=== PATIENT | female | born 1930 | race Caucasian/White ===

== ENCOUNTER 2017-12-01 07:16 | Emergency (ER) | payer MEDICARE, BC ==
[~2017-12-01] VITALS: Ht 165.1 cm; Wt 62.6 kg
[~2017-12-01 07:16] MED LIST: ACETAMINOPHEN325 M1 PO; ASPIRIN EC81 M1 PO; BAYER CHEWABLE81 MG PO; CARDIZEM CD120 MG PO; CIPROFLOXACIN500 M1 PO; CIPROFLOXACIN500 M3 PO; COZAAR 50 MG TA50 M2 PO; CRESTOR10 MG PO; CRESTOR5 MG PO; LEVAQUIN 500 M500 MG PO; LEVOTHROID50 MCG PO; PRINIVIL5 MG PO; RYTHMOL150 MG PO; SYNTHROID100 MCG PO; SYNTHROID75 MCG; XANAX 0.5 MG0.5 M1 PO
[2017-12-01 08:43] LABS: ABSOLUTE EOSINOPHILS 0.2 thou/uL (0.0-0.7); ABSOLUTE LYMPHOCYTES 1.5 thou/uL (0.8-5.3); ABSOLUTE MONOCYTES 0.7 thou/uL (0.0-1.2); ABSOLUTE NEUTROPHILS 8.5 thou/uL (1.6-8.1); BASOPHILS 0.3 %; EOSINOPHILS 1.5 %; HEMATOCRIT 39.5 % (37.0-47.0); HEMOGLOBIN 13.2 gm/dL (12.0-15.0); LYMPHOCYTES 13.7 %; MCH 32.1 pg (26.0-34.0); MCHC 33.3 g/dL (28.0-37.0); MCV 96.5 fL (80.0-100.0); MONOCYTES 6.8 %; MPV 9.2 fl. (7.2-11.1); NUCLEATED RBCS 0 /100WBC; PLATELET COUNT* 239 thou/uL (150-400); POLYS 77.7 %; RDW-CV 12.7 % (10.5-14.5)
[2017-12-01 08:51] LABS: CALCIUM 8.7 mg/dL (8.5-10.1); CREATININE 0.8 mg/dL (0.6-1.3); POTASSIUM 4.6 mmol/L (3.5-5.1)
[2017-12-01 09:17] VITALS: BP 170/71
== END 2017-12-01 09:18 | disposition home or self-care (01) ==
LOC: M.ERS 07:16
PROVIDERS: Personal Emergency Response Attendant
DX: R04.0 Epistaxis (principal)

== ENCOUNTER 2018-04-07 19:31 | Inpatient (IN) | payer MEDICARE, BC ==
[~2018-04-07] VITALS: Ht 165.1 cm; Wt 61.4 kg
[2018-04-07 19:32] VITALS: BP 199/110
[2018-04-07 19:56] LABS: HEMATOCRIT 48.6 % (37.0-47.0); HEMOGLOBIN 16.1 gm/dL (12.0-15.0); MCH 31.7 pg (26.0-34.0); MCHC 33.1 g/dL (28.0-37.0); MCV 95.6 fL (80.0-100.0); NUCLEATED RBCS 0 /100WBC; PLATELET COUNT* 259 thou/uL (150-400); RBC 5.08 mil/uL (4.20-5.00); RDW-CV 13.8 % (10.5-14.5); WBC 20.2 thou/uL (4.0-11.0)
[2018-04-07 20:08] LABS: BE -2.4 mmol/L (-2 to +3); HCO3 21.1 mmol/L (22.0-26.0); PCO2 33.1 mmHg (35.0-45.0); pH 7.422 (7.340-7.450)
[2018-04-07 20:11] LABS: PO2 59.4 mmHg (75.0-100.0)
[2018-04-07 20:18] LABS: ANION GAP 9 mmol/L (7-16); BUN 29 mg/dL (7-18); CALCIUM 9.6 mg/dL (8.5-10.1); CHLORIDE 103 mmol/L (98-107); CO2 27 mmol/L (21-32); CREATININE 0.9 mg/dL (0.6-1.3); GLUCOSE 106 mg/dL (70-99); POTASSIUM 4.4 mmol/L (3.5-5.1); SODIUM 139 mmol/L (136-145)
[2018-04-07 20:22] LABS: ABSOLUTE BASOPHILS 0.2 thou/uL (0.0-0.2); ABSOLUTE EOSINOPHILS 0.2 thou/uL (0.0-0.7); ABSOLUTE LYMPHOCYTES 2.6 thou/uL (0.8-5.3); ABSOLUTE MONOCYTES 0.8 thou/uL (0.0-1.2); ABSOLUTE NEUTROPHILS 16.4 thou/uL (1.6-8.1); PLATELET ESTIMATE ADEQUATE
[2018-04-07 20:25] LABS: ALBUMIN 4.3 g/dL (3.4-5.0); ALKALINE PHOSPHATASE 109 U/L (46-116); SGOT 26 U/L (15-37); SGPT 24 U/L (30-65); TOTAL BILIRUBIN 0.4 mg/dL (<0.1-1.0); TOTAL PROTEIN 8.5 g/dL (6.4-8.2); TROPONIN-I LEVEL <0.06 ng/mL (<0.06)
[2018-04-07 20:29] LABS: INR 1.1; PROTIME 10.7 Seconds (9.20-11.50)
[2018-04-07 21:30] VITALS: BP 157/69
[2018-04-07 22:00] VITALS: BP 178/92; BP 182/74
[2018-04-08 00:52] VITALS: BP 132/54
[2018-04-08 04:00] VITALS: BP 116/51
--- NOTE | 2018-04-08 04:48 | NUR ---
PATIENT PARTIALLY PROGRESSING TOWARDS GOALS SINCE ADMISSION: O2 SATS MAINTAINED >92% ON 3L O2 NC. PATIENT'S WORK OF BREATHING HAS SLIGHTLY IMPROVED, ALTHOUGH PATIENT DOES HAVE DYSPNEA ON EXERTION. PATIENT COMPLIANT WITH CALL LIGHT, FALL PRECAUTIONS IN PLACE. PATIENT RESTING COMFORTABLY AT THIS TIME. HOURLY ROUNDING OBSERVED. CALL LIGHT WITHIN REACH
[2018-04-08 05:01] LABS: HEMATOCRIT 41.4 % (37.0-47.0); MCH 31.3 pg (26.0-34.0); MCHC 32.5 g/dL (28.0-37.0); MCV 96.3 fL (80.0-100.0); MPV 10.5 fl. (7.2-11.1); RBC 4.29 mil/uL (4.20-5.00); RDW-CV 14.2 % (10.5-14.5); WBC 25.9 thou/uL (4.0-11.0)
[2018-04-08 05:15] LABS: HEMOGLOBIN 13.4 gm/dL (12.0-15.0)
[2018-04-08 05:24] LABS: CALCIUM 8.5 mg/dL (8.5-10.1); CREATININE 0.8 mg/dL (0.6-1.3); MAGNESIUM 1.7 mg/dL (1.8-2.4); POTASSIUM 3.9 mmol/L (3.5-5.1)
[2018-04-08 08:05] LABS: URINE BILIRUBIN NEGATIVE (Negative); URINE BLOOD TRACE (Negative); URINE CLARITY CLEAR; URINE COLOR YELLOW; URINE GLUCOSE-RANDOM NEGATIVE (Negative); URINE KETONES NEGATIVE (Negative); URINE LEUKOCYTES-REFLEX TRACE (Negative); URINE NITRITE-REFLEX NEGATIVE (Negative); URINE PROTEIN NEGATIVE (Negative); URINE SPECIFIC GRAVITY >= 1.030 (1.005-1.030); URINE UROBILINOGEN 0.2 E.U./dl (0.2-1.0)
[2018-04-08 08:28] LABS: BACTERIA-REFLEX 1-9 Few /HPF (None Seen); CASTS None Seen /LPF (None Seen); CRYSTALS None Seen /LPF (None Seen); MUCUS None Seen strn/LPF (None Seen); SQUAMOUS 0-3 Few /LPF (0-3); URINE RBC 3-10 Few /HPF (0-2); URINE WBC-REFLEX 0-5 Rare /HPF (0-5)
[2018-04-08 08:30] VITALS: BP 150/77
[2018-04-08 11:33] VITALS: BP 135/73
--- NOTE | 2018-04-08 11:34 | EKG ---
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1930 Requested By: Macarena Rosas Order Number: [id number] MD: Andrzej Ramos Measurements Intervals [place] Rate: 108 P: [place]: QRS: 84 QRSD: 77 T: 263 QT: 268 QTc: 359 Interpretive Statements Atrial fibrillation Repol abnrm, severe global ischemia (LM/MVD) Compared to ECG 11/20/2013 04:05:41 Ventricular premature complex(es) not present Possible ischemia now present Myocardial infarct finding no longer present Electronically Signed On 04-08-2018 11:34:37 CDT by Andrzej Ramos [email or web address] <ELECTRONICALLY SIGNED> By: Andrzej Ramos MD, [facility] 04/08/18 1134 47 47 Andrzej Ramos MD, [facility] /EPI
--- NOTE | 2018-04-08 12:57 | NUR ---
ATTEMPTED TO SEE PT X2, WAS ASLEEP AND NOW HAS ROOM FULL OF VISITORS
[2018-04-08 16:00] VITALS: BP 145/61
[2018-04-08 19:50] VITALS: BP 141/70
--- NOTE | 2018-04-08 21:01 | NUR ---
I ASSUMED CARE OF THE PATIENT AT 0700. SHE IS ALERT AND ORIENTED X4 AND IS UP WITH ASSIST OF ONE. BED IS IN THE LOW LOCKED POSITION AND CALL LIGHT IS IN REACH. HOURLY ROUNING WAS COMPLETED AND PATIENT NEEDS WERE MET. PAIN IS DENIED. FAMILY IS AT THE BEDSIDE MOST OF THE DAY. URINE SPECIMEN SENT, BUT PATIENT IS NOT ABLE TO PROVIDE A SPUTUM CULTURE. AROUND SHIFT CHANGE, PATIENT COMPLAINED OF CHEST PAIN. EKG WAS COMPLETED AND SHOWED ACUTE AR. DR ISAACS WAS NOTIFIED WELL DR PORTILLO. NEW ORDERS WERE GIVEN AND RESULTS WERE CALLED BACK. PO CARDIZEM WAS GIVEN EARLY A RESULT. A REPEAT TRIPONIN WAS ORDERED FOR MORNING. WILL CONTINUE TO MONITOR. PATIENT IS ABLE TO USE THE BATHROOM WITH MINIMAL ASSISTANCE.
[2018-04-09] VITALS: BP 143/54
[2018-04-09 04:00] VITALS: BP 143/58
[2018-04-09 04:47] LABS: ABSOLUTE MONOCYTES 0.9 thou/uL (0.0-1.2); ABSOLUTE NEUTROPHILS 18.3 thou/uL (1.6-8.1); HEMATOCRIT 34.8 % (37.0-47.0); HEMOGLOBIN 11.7 gm/dL (12.0-15.0); LYMPHOCYTES 4.9 %; MCHC 33.6 g/dL (28.0-37.0); MCV 95.3 fL (80.0-100.0); MONOCYTES 4.2 %; MPV 10.4 fl. (7.2-11.1); NUCLEATED RBCS 0 /100WBC; PLATELET COUNT* 176 thou/uL (150-400); POLYS 90.9 %; RBC 3.65 mil/uL (4.20-5.00); RDW-CV 14.5 % (10.5-14.5); WBC 20.1 thou/uL (4.0-11.0)
[2018-04-09 08:15] VITALS: BP 176/93
[2018-04-09] MEDS ORDERED: AZITHROMYCIN 2250 MG PO (11:08)
[2018-04-09] MEDS ORDERED: PREDNISONE 10 M10 M1 PO (11:08)
[2018-04-09] MEDS ORDERED: CEFDINIR300 MG PO (11:08)
[2018-04-09] MEDS ORDERED: MUCINEX600 MG PO (11:08)
[2018-04-09 12:18] VITALS: BP 157/53
--- NOTE | 2018-04-09 14:06 | EKG ---
[place] [address] ELECTROCARDIOGRAM REPORT Name: PEBBLES SÁNCHEZ Room: [address] ADM IN .R.#: [id number] Admission: 04/07/18 Attend Phys: Bryson Mcnair MD Discharge: Date of : 31 Report #: [id number] THIS REPORT FOR: //name// [facility] Test Date: 2018-04-08 Test Time: 18:52:28 Pat Name: PEBBLES SÁNCHEZ Department: Room: [address] Gender: F Authorization Nurse: : 1930 Requested By: Trevor Briones Order Number: [id number] MD: Andrzej Ramos Measurements Intervals [place] Rate: 105 P: IN: QRS: 79 QRSD: 82 T: 219 QT: 280 QTc: 371 Interpretive Statements Atrial fibrillation Ventricular premature complex nonspecific st changes Baseline wander in lead(s) V6 Compared to ECG 04/07/2018 19:48:07 Ventricular premature complex(es) now present Electronically Signed On 04-09-2018 14:05:54 CDT by Andrzej Ramos [email or web address] <ELECTRONICALLY SIGNED> By: Andrzej Ramos MD, [facility] 04/09/18 1405 185 185 Andrzej Ramos MD, [facility] /EPI
[2018-04-09 15:54] VITALS: BP 157/53
--- NOTE | 2018-04-09 19:11 | NUR ---
I ASSUMED CARE OF THE PATIENT AT 0700. SHE IS ALERT AND ORIENTED X4, BUT CAN BE FORGETFUL. SHE IS UP WITH STAND BY ASSIST. BED IS IN THE LOW LOCKED POSITION AND CALL LIGHT IS IN REACH. HOURLY ROUNDING WAS COMPLETED AND PATIENT NEEDS WERE MET. PAIN IS DENIED. DISCHARGE WAS COMPLETED AND SCRIPTS WERE CALLED IN TO [facility] [address] FAMILY IS AT THE BEDSIDE. SHE WAS ABLE TO WALK THE HALLS WITH RT AND PASSED HER OXYGEN TEST.
--- NOTE | 2018-04-10 07:19 | CON ---
[address] [address] CONSULTATION Name: PEBBLES SÁNCHEZ Room: [address] IN M.R.#: [id number] Admission: 04/07/18 Attend Phys: Bryson Mcnair MD Discharge: 04/09/18 Date of : 31 Report #: [id number] THIS REPORT FOR: //name// CC: Zaki Mcnair DATE OF SERVICE: 04/08/2018 HISTORY OF PRESENT ILLNESS: The patient is an 87-year-old single white female who I was asked to see in the hospital today after she had a chill at home. The history is obtained from the patient, her son as well as some old records. The patient has a history of permanent atrial fibrillation. She has not felt to be a candidate for anticoagulation because of a history of an intracerebral bleed. 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 Since I saw her in the clinic at that time, she returned in 2016 for pacemaker followup. She paced only occasionally. She has done fairly well since that time, although she is not very active because of her age. She denies recent chest pain. She was doing well until a couple of days ago. She apparently recently had a cough. She had a chill and was not feeling well. Her son called the paramedics. She was brought here to [place] and admitted. I was asked to see her for further evaluation and treatment. She denies any palpitations or syncope. PAST MEDICAL HISTORY: Significant for tonsillectomy. She has a history of hypertension, hyperlipidemia. She had a previous stent placed for peripheral arterial disease. She has history of a small abdominal aortic aneurysm. CURRENT MEDICATIONS: Include Xanax, aspirin, Synthroid, losartan, Crestor, diltiazem. ALLERGIES: SHE HAS AN ALLERGY TO SULFA DRUGS. FAMILY HISTORY: Negative for heart disease. SOCIAL HISTORY: She is single, lives in [place], [place] by herself. She used to smoke a pack of cigarettes a day, quit about 8 years ago. No alcohol abuse. REVIEW OF SYSTEMS: She apparently had an intracerebral stroke in the past, was admitted to [facility]. She has no history of asthma, peptic ulcer disease, liver disease, kidney disease, cancer, psychiatric illness. She does have PAD and complains of exertional leg pain. PHYSICAL EXAMINATION: GENERAL: Revealed an elderly [place] [address] CONSULTATION Name: PEBBLES SÁNCHEZ Room: [address]#: [id number] Admission: 04/07/18 Attend Phys: Bryson Mcnair MD Discharge: 04/09/18 Date of : 31 Report #: [id number] VITAL SIGNS: She had a blood pressure of 120/70, pulse is 90. She is afebrile. HEENT: She is anicteric, conjunctivae pink. Mucous membranes are moist. NECK: Veins nondistended. No carotid bruits. Neck supple. CHEST: Clear to auscultation. CARDIAC: Irregular rhythm. No significant murmur. ABDOMEN: Soft, nontender. EXTREMITIES: Had no edema. Dorsalis pedis pulse could be palpated. SKIN: Cool and dry. NEUROLOGIC: Nonfocal. DIAGNOSTIC DATA: Her ECG shows atrial fibrillation with nonspecific ST and T-wave changes. Her pacemaker was last interrogated. She had a transmission in January that showed she paces approximately 40% of the time. The R waves were 7 millivolts. Her last echocardiogram in 2012 showed an ejection fraction of 60%. There was moderate tricuspid regurgitation. She actually had a nuclear stress test in 2012 using Lexiscan that showed possible breast attenuation, but no significant ischemia. LABORATORY WORK: Yesterday showed BUN 24, creatinine 0.8, total protein 8.5, albumin 4.3. Troponin 0.06. White blood cell count 25.9, hemoglobin 13.4. She had a chest x-ray in the Emergency Room yesterday that showed lower lobe infiltrate. IMPRESSION AND RECOMMENDATIONS: 1. Pneumonia. The patient is being treated with antibiotics. 2. Atrial fibrillation. Noted to be chronic. The patient is on a calcium hira. I would not recommend anticoagulation because of her history of previous hemorrhagic stroke. 3. Sick sinus syndrome. Previous pacemaker insertion. The patient's pacemaker is in a demand mode at 60 beats per minute. 4. Hypertension. The patient is on an ARB and calcium hira. 5. Small abdominal aortic aneurysm. 6. Peripheral artery disease. Previous stent. 7. Previous tobacco abuse. <ELECTRONICALLY SIGNED> By: Andrzej Ramos MD, [facility] 04/10/18718 8 1941Dnatalia Ramos MD, FAC /nt
== END 2018-04-09 16:40 | disposition home or self-care (01) | DRG 871 ==
LOC: M.ERS 19:31 → M.TBA-ER 20:31 → M.2W 21:40
PROVIDERS: Personal Emergency Response Attendant; ADMIT Internal Medicine
DX: A41.9 Sepsis, unspecified organism (principal); J96.01 Acute respiratory failure with hypoxia; J15.9 Unspecified bacterial pneumonia; I10 Essential (primary) hypertension; E78.00 Pure hypercholesterolemia, unspecified; E03.9 Hypothyroidism, unspecified; F41.9 Anxiety disorder, unspecified; I73.9 Peripheral vascular disease, unspecified; I49.5 Sick sinus syndrome; I71.4 Abdominal aortic aneurysm, without rupture; I48.2 Chronic atrial fibrillation; I25.10 Atherosclerotic heart disease of native coronary artery without angina pectoris; Z79.82 Long term (current) use of aspirin; Z79.899 Other long term (current) drug therapy; Z88.2 Allergy status to sulfonamides; Z87.891 Personal history of nicotine dependence; Z86.73 Personal history of transient ischemic attack (TIA), and cerebral infarction without residual deficits; Z95.0 Presence of cardiac pacemaker

== ENCOUNTER 2018-04-13 15:22 | Emergency (ER) | payer MEDICARE, BC ==
[~2018-04-13] VITALS: Ht 165.1 cm; Wt 55.5 kg
[~2018-04-13 15:22] MED LIST changes: +AZITHROMYCIN 2250 MG PO; +CEFDINIR300 MG PO; +MUCINEX600 MG PO; +PREDNISONE 10 M10 M1 PO
[2018-04-13 16:01] LABS: HEMATOCRIT 42.5 % (37.0-47.0); HEMOGLOBIN 14.2 gm/dL (12.0-15.0); MCH 31.8 pg (26.0-34.0); MCHC 33.4 g/dL (28.0-37.0); MCV 95.2 fL (80.0-100.0); MPV 9.4 fl. (7.2-11.1); NUCLEATED RBCS 0 /100WBC; PLATELET COUNT* 251 thou/uL (150-400); RBC 4.46 mil/uL (4.20-5.00); RDW-CV 14.6 % (10.5-14.5); WBC 8.6 thou/uL (4.0-11.0)
[2018-04-13 16:09] LABS: INR 1.1; PROTIME 10.6 Seconds (9.20-11.50)
[2018-04-13 16:11] LABS: ANION GAP 5 mmol/L (7-16); BUN 29 mg/dL (7-18); CALCIUM 8.7 mg/dL (8.5-10.1); CHLORIDE 101 mmol/L (98-107); CO2 28 mmol/L (21-32); GLUCOSE 122 mg/dL (70-99); POTASSIUM 3.3 mmol/L (3.5-5.1); SODIUM 134 mmol/L (136-145)
[2018-04-13 16:16] LABS: URINE BILIRUBIN NEGATIVE (Negative); URINE BLOOD NEGATIVE (Negative); URINE CLARITY CLEAR; URINE COLOR YELLOW; URINE GLUCOSE-RANDOM NEGATIVE (Negative); URINE KETONES NEGATIVE (Negative); URINE LEUKOCYTES-REFLEX NEGATIVE (Negative); URINE NITRITE-REFLEX NEGATIVE (Negative); URINE PROTEIN NEGATIVE (Negative); URINE UROBILINOGEN 0.2 E.U./dl (0.2-1.0)
[2018-04-13 16:18] LABS: ALBUMIN 3.1 g/dL (3.4-5.0); ALKALINE PHOSPHATASE 79 U/L (46-116); LIPASE 314 U/L (73-393); SGOT 37 U/L (15-37); SGPT 75 U/L (30-65); TOTAL BILIRUBIN 0.4 mg/dL (<0.1-1.0); TOTAL PROTEIN 6.7 g/dL (6.4-8.2); TROPONIN-I LEVEL <0.06 ng/mL (<0.06)
[2018-04-13 16:33] LABS: ABSOLUTE LYMPHOCYTES 2.3 thou/uL (0.8-5.3); ABSOLUTE MONOCYTES 0.9 thou/uL (0.0-1.2); ABSOLUTE NEUTROPHILS 5.3 thou/uL (1.6-8.1)
[2018-04-13 16:34] LABS: PLATELET ESTIMATE ADEQUATE
[2018-04-13 18:19] VITALS: BP 176/93
--- NOTE | 2018-04-14 10:42 | EKG ---
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
== END 2018-04-13 18:20 | disposition home or self-care (01) ==
LOC: M.ERS 15:22
PROVIDERS: Physician Assistant
DX: R19.7 Diarrhea, unspecified (principal); I10 Essential (primary) hypertension; E78.00 Pure hypercholesterolemia, unspecified; E03.9 Hypothyroidism, unspecified; F41.9 Anxiety disorder, unspecified; I48.91 Unspecified atrial fibrillation; Z86.73 Personal history of transient ischemic attack (TIA), and cerebral infarction without residual deficits; Z87.891 Personal history of nicotine dependence; Z88.1 Allergy status to other antibiotic agents

== ENCOUNTER 2018-07-01 21:49 | Inpatient (IN) | payer MEDICARE, BC ==
[~2018-07-01] VITALS: Ht 165.1 cm; Wt 59.1 kg
[2018-07-01 21:51] VITALS: BP 219/95
[2018-07-01 22:19] LABS: ABSOLUTE BASOPHILS 0.1 thou/uL (0.0-0.2); ABSOLUTE EOSINOPHILS 0.3 thou/uL (0.0-0.7); ABSOLUTE MONOCYTES 0.8 thou/uL (0.0-1.2); ABSOLUTE NEUTROPHILS 4.5 thou/uL (1.6-8.1); BASOPHILS 0.8 %; EOSINOPHILS 3.3 %; HEMATOCRIT 45.1 % (37.0-47.0); HEMOGLOBIN 14.8 gm/dL (12.0-15.0); LYMPHOCYTES 34.6 %; MCH 32.3 pg (26.0-34.0); MCHC 32.9 g/dL (28.0-37.0); MCV 98.2 fL (80.0-100.0); MONOCYTES 8.9 %; NUCLEATED RBCS 0 /100WBC; PLATELET COUNT* 251 thou/uL (150-400); POLYS 52.4 %; RBC 4.59 mil/uL (4.20-5.00); RDW-CV 13.7 % (10.5-14.5); WBC 8.7 thou/uL (4.0-11.0)
[2018-07-01 22:30] LABS: ANION GAP 3 mmol/L (7-16); BUN 25 mg/dL (7-18); CALCIUM 8.7 mg/dL (8.5-10.1); CHLORIDE 104 mmol/L (98-107); CO2 31 mmol/L (21-32); GLUCOSE 91 mg/dL (70-99); POTASSIUM 3.8 mmol/L (3.5-5.1); SODIUM 138 mmol/L (136-145)
[2018-07-01 22:33] LABS: APTT 28.4 Seconds (25.0-31.3); PROTIME 10.4 Seconds (9.20-11.50)
[2018-07-01 22:41] LABS: ALKALINE PHOSPHATASE 92 U/L (46-116); NT-PRO BRAIN NAT PEPTIDE 1591 pg/mL (<300); SGOT 20 U/L (15-37); SGPT 20 U/L (30-65); TOTAL BILIRUBIN 0.3 mg/dL (<0.1-1.0); TOTAL PROTEIN 7.6 g/dL (6.4-8.2); TROPONIN-I LEVEL <0.06 ng/mL (<0.06)
[2018-07-01 23:05] LABS: URINE BILIRUBIN NEGATIVE (Negative); URINE BLOOD NEGATIVE (Negative); URINE CLARITY CLEAR; URINE COLOR YELLOW; URINE GLUCOSE-RANDOM NEGATIVE (Negative); URINE KETONES NEGATIVE (Negative); URINE LEUKOCYTES-REFLEX 1+ (Negative); URINE NITRITE-REFLEX NEGATIVE (Negative); URINE PROTEIN NEGATIVE (Negative); URINE UROBILINOGEN 0.2 E.U./dl (0.2-1.0)
[2018-07-01 23:22] LABS: BACTERIA-REFLEX 1-9 Few /HPF (None Seen); CASTS None Seen /LPF (None Seen); CRYSTALS None Seen /LPF (None Seen); SQUAMOUS 0-3 Few /LPF (0-3); URINE RBC None Seen /HPF (0-2); URINE WBC-REFLEX 6-15 Few /HPF (0-5)
[2018-07-02] VITALS (11 sets, daily range): BP systolic 152–194; BP diastolic 63–101
[2018-07-02 13:11] LABS: HEMATOCRIT 44.1 % (37.0-47.0); HEMOGLOBIN 14.6 gm/dL (12.0-15.0); MCH 32.4 pg (26.0-34.0); MCHC 33.1 g/dL (28.0-37.0); MCV 97.9 fL (80.0-100.0); MPV 10.1 fl. (7.2-11.1); RBC 4.51 mil/uL (4.20-5.00); RDW-CV 13.9 % (10.5-14.5); WBC 6.8 thou/uL (4.0-11.0)
[2018-07-02 13:19] LABS: CALCIUM 8.7 mg/dL (8.5-10.1); CREATININE 0.9 mg/dL (0.6-1.3); MAGNESIUM 1.9 mg/dL (1.8-2.4); POTASSIUM 3.5 mmol/L (3.5-5.1)
--- NOTE | 2018-07-02 14:00 | EKG ---
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 : 1930 Requested By: Macarena Rosas Order Number: [id number] MD: Osman Ryan Measurements Intervals [place] Rate: 83 P: [place]: QRS: 82 QRSD: 84 T: -20 QT: 389 QTc: 457 Interpretive Statements Atrial fibrillation Multiple ventricular premature complexes Anteroseptal infarct, age indeterminate Compared to ECG 04/13/2018 16:00:21 Ventricular premature complex(es) now present Myocardial infarct finding now present Electronically Signed On 07-02-2018 14:00:08 CDT by Osman Ryan [email or web address] <ELECTRONICALLY SIGNED> By: Geovanni Ryan MD, [facility] 07/02/18 1400 55 55 Geovanni Ryan MD, [facility] /EPI
[2018-07-03] VITALS (7 sets, daily range): BP systolic 108–144; BP diastolic 57–69
[2018-07-03 05:03] LABS: HEMOGLOBIN 13.3 gm/dL (12.0-15.0); MCH 32.7 pg (26.0-34.0); MCHC 33.2 g/dL (28.0-37.0); MCV 98.3 fL (80.0-100.0); MPV 10.3 fl. (7.2-11.1); RBC 4.07 mil/uL (4.20-5.00); RDW-CV 13.7 % (10.5-14.5); WBC 5.2 thou/uL (4.0-11.0)
[2018-07-03 05:26] LABS: CALCIUM 8.4 mg/dL (8.5-10.1); CREATININE 0.7 mg/dL (0.6-1.3); MAGNESIUM 1.9 mg/dL (1.8-2.4)
[2018-07-03] MEDS ORDERED: ASPIRIN325 PO (10:30)
[2018-07-03] MEDS ORDERED: HYDRALAZINE 10M10 MG PO (10:30)
[2018-07-03] MEDS ORDERED: COZAAR 25 MG TA25 M1 PO (10:30)
[2018-07-03 10:44] LABS: CHOLESTEROL 143 mg/dL (<200); HDL CHOLESTEROL 52 mg/dL (>40); LDL CHOLESTEROL 80 mg/dL (<100); TC:HDL 2.8 Ratio (Not establshd); TRIGLYCERIDE 57 mg/dL (<150); VLDL 11 mg/dL (<40)
[2018-07-03 10:45] LABS: SERUM ASSESSMENT Clear
--- NOTE | 2018-07-03 15:39 | 2DMMODE ---
[place] [address] 2 D/M-MODE ECHOCARDIOGRAM Name: PEBBLES SÁNCHEZ Room: [address] IN [facility]#: [id number] Admission: 07/01/18 Attend Phys: Trevor Ramírez Discharge: Date of : 31 Date of Service: 07/03/18 1539 Report #: [id number] THIS REPORT FOR: //name// APPROVED REPORT Study performed: 07/03/2018 12:18:19 EXAM: Comprehensive 2D, Doppler, and color-flow Echocardiogram Patient Location: In-Patient Room #: 218 Status: routine BSA: 1.60 HR: 71 bpm BP: 108/69 mmHg Rhythm: NSR Other Information Study Quality: Good Indications NEAR SYNCOPE, LIGHTHEADED 2D Dimensions IVSd: 9.99 (7-11mm) LVOT Diam: 21.67 (18-24mm) LVDd: 34.47 mm PWd: 9.78 (7-11mm) Ascending Ao: 25.41 (22-36mm) LVDs: 22.47 (25-40mm) Aortic Root: 30.66 mm Volumes Left Atrial Volume (Systole) LA ESV Index: 48.10 mL/m2 Aortic Valve AoV Peak Wilfrid.: 1.28 m/s AO Peak Gr.: 6.52 mmHg LVOT Max P.11 mmHg AO Mean Gr.: 3.59 mmHg LVOT Mean P.97 mmHg LVOT Max V: 0.73 m/s AO V2 VTI: 28.51 cm LVOT Mean V: 0.45 m/s LUIS (VTI): 2.06 cm2 LVOT V1 VTI: 15.93 cm Mitral Valve MV Decel. Time: 129.58 ms MV PHT: 37.58 ms MVA (PHT): 5.85 [place]2 [place] [address] 2 D/M-MODE ECHOCARDIOGRAM Name: PEBBLES SÁNCHEZ Room: [address] IN [facility]#: [id number] Admission: 07/01/18 Attend Phys: Trevor Ramírez Discharge: Date of : 31 Date of Service: 07/03/18 1539 Report #: [id number] TDI Medial E' Wilfrid.: 0.12 m/s Lateral E' Wilfrid.: 0.14 m/s Pulmonary Valve PV Peak Wilfrid.: 0.73 m/s PV Peak Gr.: 2.10 mmHg Tricuspid Valve RAP Estimate: 5.00 mmHg TR Peak Gr.: 31.95 mmHg RVSP: 37.00 mmHg PA Pressure: 37.00 mmHg Left Ventricle The left ventricle is normal size. There is normal LV segmental wall motion. There is normal left ventricular wall thickness. Left ventricular systolic function is normal. The left ventricular ejection fraction is within the normal range. LVEF is 60%. This study is not technically sufficient to allow evaluation of the LV diastolic function due to atrial fibrillation. Right Ventricle The right ventricle is normal size. The right ventricular systolic function is normal. Atria Left atrium is moderately dilated. Right atrium is moderately dilated. Aortic Valve Mild aortic valve sclerosis. No aortic regurgitation is present. There is no aortic valvular stenosis. Mitral Valve There is mitral annular calcification. Mild mitral regurgitation. No evidence of mitral valve stenosis. Tricuspid Valve The tricuspid valve is normal in structure. Moderate tricuspid regurgitation. Mild pulmonary hypertension. Pulmonic Valve The pulmonary valve is normal in structure. There is no pulmonic valvular regurgitation[place] [address] 2 D/M-MODE ECHOCARDIOGRAM Name: PEBBLES SÁNCHEZ Room: [address] IN [facility]#: [id number] Admission: 07/01/18 Attend Phys: Trevor Ramírez Discharge: Date of : 31 Date of Service: 07/03/18 1539 Report #: [id number] The aortic root is normal in size. IVC is dilated and collapses >50% with inspiration. Pericardium There is no pericardial effusion. <Conclusion> The left ventricle is normal size. There is normal left ventricular wall thickness. Left ventricular systolic function is normal. The left ventricular ejection fraction is within the normal range. LVEF is 60%. This study is not technically sufficient to allow evaluation of the LV diastolic function due to atrial fibrillation. The right ventricle is normal size. Left atrium is moderately dilated. Right atrium is moderately dilated. Mild aortic valve sclerosis. No aortic regurgitation is present. There is no aortic valvular stenosis. There is mitral annular calcification. Mild mitral regurgitation. The tricuspid valve is normal in structure. Moderate tricuspid regurgitation. Mild pulmonary hypertension. IVC is dilated and collapses >50% with inspiration. There is no pericardial effusion. There is normal LV segmental wall motion. <ELECTRONICALLY SIGNED> By: Colin Simpson MD, FACC 07/03/18 1539 1539 1539 Colin Simpson MD, FACC /INF
[2018-07-04 02:10] LABS: GLYCOHEMOGLOBIN (HGB A1C) 5.9 % (4.8-5.6)
--- NOTE | 2018-07-04 09:29 | CON ---
[address] [address] CONSULTATION Name: PEBBLES SÁNCHEZ Room: [address] IN .R.#: [id number] Admission: 07/01/18 Attend Phys: Trevor Briones, Discharge: 07/03/18 Date of : 31 Report #: [id number] THIS REPORT FOR: //name// CC: Zaki Briones DATE OF SERVICE: 07/03/2018 CONSULTING PHYSICIAN: Trevor Briones MD. REASON FOR NEPHROLOGY CONSULTATION: Significant left-sided renal artery stenosis. CHIEF COMPLAINT: Dizziness and accelerated hypertension. HISTORY OF PRESENT ILLNESS: This is an 87-year-old female who has a history of anxiety, history of hypertension, which is chronic in nature and has been there for a long time, came in because she was feeling very dizzy. The patient's blood pressure was found to be in 200 systolic. She normally takes losartan 50 mg a day at home and she also takes diltiazem 120 mg at bedtime. Initial head CT was negative for any evidence of any stroke. Neurology has also been consulted for her dizziness. She also had another syncopal episode yesterday and another CT scan was done, which showed a possible lacunar infarct in right caudate area and basal ganglia area. She is not having any complaints right now. Her blood pressure is now well controlled 130-140 systolic. Her losartan has been increased to 75 mg at bedtime. Diltiazem has been kept the same. She has also been getting IV fluids in the form of normal saline at 100 mL an hour. She has been eating and drinking well. Her abdominal imaging, which was a renal ultrasound that showed evidence of left-sided renal artery stenosis with left renal to aortic ratio of 4.65. ALLERGIES: LISTED TO SULFA AND SIMVASTATIN. REVIEW OF SYSTEMS: This is as mentioned above, she is very nervous, otherwise negative. She is just anxious to go home now. PAST MEDICAL HISTORY AND SURGICAL HISTORY: Includes hypertension, CVA in 2006 with brain hemorrhage, high cholesterol, hypothyroidism, UTI, history of episode of atrial fibrillation, pacemaker, anxiety, pneumonia. REPORTED HOME MEDICATIONS: Include losartan 50 mg at bedtime, aspirin chewable 81 mg at bedtime. She also takes Aleve 1 tablet every other day for pain, alprazolam, levothyroxine and rosuvastatin. FAMILY HISTORY: Noncontributory in this 87-[place] [address] CONSULTATION Name: PEBBLES SÁNCHEZ Gabrielle Room: [address]#: [id number] Admission: 07/01/18 Attend Phys: Trevor Briones, Discharge: 07/03/18 Date of : 31 Report #: [id number] SOCIAL HISTORY: She does not smoke, use alcohol or any recreational drugs. She lives by herself. PHYSICAL EXAMINATION: VITAL SIGNS: Blood pressure is 108/69, pulse ox is 98% on room air, temperature 36.4, pulse rate of 74, respiratory rate 16. GENERAL: She is very anxious, otherwise alert, oriented x 3, HEAD, EYES, EARS, NOSE, THROAT: Mucous membranes are moist. NECK: There is no JVD. CHEST: Clear to auscultation bilaterally. No crackles or wheezing heard. CARDIOVASCULAR: S1, S2 normal. No murmurs heard. ABDOMEN: Soft, nondistended, nontender, bowel sounds present. EXTREMITIES: No lower extremity edema, symmetrical lower extremities. NEUROLOGICAL: Gross neurological function is intact. PSYCHIATRIC: Mood and affect seem to be normal. LABORATORY DATA: Hemoglobin 13.3, creatinine 0.7 and other labs were reviewed. IMAGING: All imaging studies including renal ultrasound were reviewed. ASSESSMENT AND PLAN: 1. Uncontrolled hypertension, which is now well controlled. 2. Evidence of a left-sided renal artery stenosis. 3. Acute lacunar ischemic stroke involving right caudate and basal ganglia area, Neurology is following. 4. History of chronic atrial fibrillation. 5. Hyperlipidemia. 6. Near syncopal event when she was admitted. PLAN: 1. Continue with losartan 75 mg q. day as well as diltiazem at the same dose. There is nothing to do for renal artery stenosis, right now since her blood pressure is well controlled. Her left kidney has a good size and parenchyma seems to be preserved as well. Creatinine is 0.7. The patient can be followed up as an outpatient for blood pressure management with her PCP or can even follow with us. 2. I have also educated her that she should try to consume low-salt diet because she does eat a lot from outside. I have also asked her to quit using Aleve if she can. 3. I did note that in 2016, the patient had abdominal imaging done, which did not show any evidence of renal artery stenosis, so this could be a relatively newer finding, but the patient states her blood pressure has been not controlled for a long time. Thank you for this consultation and I will also go ahead and stop her IV fluids [address] [address] CONSULTATION Name: PEBBLES SÁNCHEZ Room: [address] IN ..#: [id number] Admission: 07/01/18 Attend Phys: Trevor Briones, Discharge: 07/03/18 Date of : 31 Report #: [id number] and she is going to eat and drink. We will sign off for now, but please call with any questions. <ELECTRONICALLY SIGNED> By: Marisela Duarte MD 07/04/18 0929 0934 1734Acathy Duarte MD /alvarado
--- NOTE | 2018-07-10 09:50 | CON ---
[address] [address] CONSULTATION Name: PEBBLES SÁNCHEZ Room: [address] IN M.R.#: [id number] Admission: 07/01/18 Attend Phys: Trevor Briones, Discharge: 07/03/18 Date of : 31 Report #: [id number] THIS REPORT FOR: //name// CC: Zaki Briones DATE OF SERVICE: 07/02/2018 HISTORY OF PRESENT ILLNESS: This is an 87-year-old female patient who indicated that she was feeling dizzy and ataxic yesterday. She indicated it came spontaneously without any trauma. Her ataxia was severe. She could not walk. She does not know anything, which made it better or worse. When she came in, her blood pressure was high, but it has come down. REVIEW OF SYSTEMS: Indicate that she has a history of hypertension. She said she had CVA more than 10 years ago and there was a question of hemorrhage. I do not have any records in that regard. She has DICTATION ENDS HERE <ELECTRONICALLY SIGNED> By: Fausto Lira MD 07/10/18 0950 1244 0040Fausto Lira MD /nt
--- NOTE | 2018-07-10 09:50 | CON ---
[address] [address] CONSULTATION Name: PEBBLES SÁNCHEZ Room: [address] IN M.R.#: [id number] Admission: 07/01/18 Attend Phys: Trevor Briones, Discharge: 07/03/18 Date of : 32 Report #: [id number] THIS REPORT FOR: //name// CC: Zaki Briones DATE OF SERVICE: 07/02/2018 HISTORY OF PRESENT ILLNESS: This is an 87-year-old female patient who was evaluated by me for an episode of dizziness and ataxia. She indicated that she had onset of severe ataxia that came spontaneously. She was also dizzy. She said she could not walk. She had associated high blood pressure at that time. She was also anxious. She took some Xanax, but dizziness started before that. She has become better. She is able to walk, but does not feel totally back to her baseline. REVIEW OF SYSTEMS: Indicate that she has a history of stroke more than 10 years ago. She said she had a little brain hemorrhage. I do not have any records in that regard. She has a history of atrial fibrillation. She has a history of a pacemaker. She has a history of anxiety. She is not on any anticoagulation. She follows up with her benzol operator in that regard. She does have a history of pneumonia. REVIEW OF SYSTEMS: This was a relevant 14-point review of system. I reviewed that with her and she is not complaining of any new eye, ENT, cardiac, respiratory, GI, , musculoskeletal, constitutional, dermatological, hematological, psychiatric, throat, allergic symptoms associated with present symptomatology except as described above. PAST MEDICAL HISTORY: Positive for stroke and she may have had a little hemorrhage. FAMILY HISTORY: Negative for early age stroke. SOCIAL HISTORY: She does not smoke or drink alcohol. PHYSICAL EXAMINATION: The patient's examination indicate she is alert. She is responsive. She can follow simple commands. Her speech, concentration, fund of knowledge and memory is at her baseline. Cranial nerve examination 11-14 was unremarkable. Strength, sensation, reflexes and tone looks symmetrical. There is not much cerebellar sign today. I could not look at the patient's fundus. She is a thinly built individual who does not have any dysmorphic features of eyes, ears and face. Her vision and hearing looks adequate. She has a pacemaker. No respiratory difficulty or rhonchi. Pulses are somewhat difficult to feel. Blood pressure is 154/93, pulse is 68 and temperature is ____. [place] [address] CONSULTATION Name: PEBBLES SÁNCHEZ Room: [address]#: [id number] Admission: 07/01/18 Attend Phys: Trevor Briones, Discharge: 07/03/18 Date of : 31 Report #: [id number] LABORATORY DATA: WBC count is 8.7. Sodium is 138. CT scan was mostly unremarkable. IMPRESSION: It is possible this patient has a TIA or a small stroke in the posterior fossa, which caused her ataxia. Workup is difficult in this patient because she has a pacemaker, which is a problem with doing an MRI. My original plan was to do an MRI, but I do not know whether that is compatible or not, so I will get a carotid Doppler done first. I will get a PT, OT and see how she does with them. We need to talk to the benzol operator and we will see what they say about the atrial fibrillation and restarting the patient on anticoagulation. I would like to get her record for 10 years ago to see if she had a bleed and what the bleed was from if possible, but presently there is no evidence of a bleed. RECOMMENDATIONS: 1. We will get a carotid Doppler done. 2. We will see how she does with PT and OT. 3. We may repeat the CT scan in this patient to see if we can document any stroke. I discussed all of it with the patient and the family and we will follow the patient with you tomorrow. <ELECTRONICALLY SIGNED> By: Fausto Lira MD 07/10/18 0950 [id number] Lira MD /nt
--- NOTE | 2018-07-31 09:08 | CON ---
[address] [address] CONSULTATION Name: PEBBLES SÁNCHEZ Room: [address] IN M.R.#: [id number] Admission: 07/01/18 Attend Phys: Trevor Briones, Discharge: 07/03/18 Date of : 31 Report #: [id number] THIS REPORT FOR: //name// CC: Zaki Briones CARDIOLOGY CONSULTATION HISTORY OF PRESENT ILLNESS: I was asked by Dr. Briones to see this 87-year-old white female in Cardiology consultation for ataxia. She is no longer ataxic today. She had an episode of ataxia last night when she stood up and became dizzy and lightheaded. She then had difficulty walking. The difficulty walking seems to have resolved. She has no evidence of ataxia either in her upper or lower extremities today. She does not have any evidence of orthostatic hypotension today. Her lying blood pressure is 174/85 with a standing blood pressure of 166/91. Sitting blood pressure 175/84. Her pulse line is 81, sitting 75 standing 78. This lady does have a history of essential hypertension. She has chronic atrial fibrillation. She has had a previous intracranial bleed. She is not anticoagulated with Coumadin or NOACS. She has hypercholesterolemia. She has had a previous pacemaker placed for bradycardia. She is fairly infirm related to her age, that is chronic. She has hypothyroidism and she has a history of anxiety. She has not had chest pain. She denies dyspnea on exertion, shortness of breath at rest, orthopnea or PND. She has not had syncope or near syncope. Coronary risk factors include past history of smoking and hypercholesterolemia. She has not had diabetes. She does have high blood pressure. There is no family history of heart disease. She has not had kidney disease. The only stroke is intracranial bleed. She has not had any TIA. She does not have any claudication or open or nonhealing wounds. She had a cardiac stent placed in 2015. The pacemaker was placed in 2013. It is a [employer] [facility] and it is not MRI compatible. She had an inguinal hernia repair in 2017. The pacemaker will be interrogated by [facility] [facility] today. ALLERGIES: SHE IS ALLERGIC TO SULFA AND SIMVASTATIN. SOCIAL HISTORY: She is . 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 She does not smoke, drink or use illegal drugs. FAMILY HISTORY: Remarkable for father having had a heart attack at age 59. There is no family history of sudden . REVIEW OF SYSTEMS: Positive for thyroid trouble or hypothyroidism, seasonal allergies, MEDICAL ALLERGIES TO SULFA, depression, anxiety, wearing glasses, decreased hearing and bleeding from the nose. Otherwise, the review of systems is negative for some 35 different complaints in 14 different system categories, including central nervous system, general, respiratory, cardiovascular, endocrine, gastrointestinal, genitourinary, hematologic, lymphatic, allergic, immunologic, psychiatric, musculoskeletal, skin, eyes, ears, nose, mouth, [place] [address] CONSULTATION Name: PEBBLES SÁNCHEZ [address] [id number] Admission: 07/01/18 Attend Phys: Trevor Briones, Discharge: 07/03/18 Date of : 31 Report #: [id number]. Please see review of system form for details and negatives in review of systems. HOME MEDICATIONS: Xanax 0.5 mg q. 12 hours p.r.n. anxiety, aspirin 81 mg daily at bedtime, diltiazem CD 120 mg daily at bedtime, levothyroxine 0.1 mg daily and losartan 50 mg daily at bedtime, although she tells me she takes her diltiazem and losartan at noon and she takes Crestor 10 mg at bedtime. PHYSICAL EXAMINATION: GENERAL: She presented as a well-developed, well-nourished white female in no acute distress. VITAL SIGNS: Pulse was 80 and regular, blood pressure was 170/80, respirations were 16 and regular and she was afebrile. HEENT: Her head was atraumatic. Eyes were clear. Mucous membranes were moist. NECK: Supple. There was no jugular venous distention or hepatojugular reflux. Thyroid was not enlarged. There was no adenopathy. SKIN: Warm and dry. LUNGS: Clear to auscultation and percussion. HEART: Examination of the heart revealed normal first and second heart sounds. There was no S4. There was no S3. There were no murmurs, rubs, thrills, heaves or gallops. PMI was nondisplaced. Rhythm was irregularly irregular, rate was approximately 80. ABDOMEN: Soft, flat and nontender. No palpable masses, no organomegaly. EXTREMITIES: Examination of the extremities revealed no cyanosis, clubbing or edema. NEUROLOGIC: The patient mentated normally, talked normally and moved all extremities normally. She was not ataxic either in her upper and lower extremities when I examined her. She has been seen by Neurology, who ordered an MRI. We will have to substitute a CT of the head with contrast for the MRI. IMPRESSION: 1. Orthostatic dizziness and lightheadedness. 2. Status post intracranial bleed in the past. 3. Transient episode of ataxia. 4. Essential hypertension. 5. Chronic atrial fibrillation. 6. Hypercholesterolemia. 7. Status post pacemaker for bradycardia. 8. Infirmity of age that is chronic. 9. Hypothyroidism. 10. Anxiety. RECOMMENDATIONS: I will get a CT of the head with contrast. Note she cannot have an MRI because of the pacemaker device. Depending on the results of the CT of the head, she will probably need to be switched either on Aggrenox or Plavix plus aspirin. Given her previous history of an intracranial bleed[place] [address] CONSULTATION Name: ALMBERT SÁNCHEZUri Anthony Room: [address]#: [id number] Admission: 07/01/18 Attend Phys: Trevor Briones, Discharge: 07/03/18 Date of : 31 Report #: [id number] think she is a good candidate for either warfarin, which she refuses to take any way or a NOAC. Thank you very much for asking me to see the patient. If there are any questions, please feel free to contact me. <ELECTRONICALLY SIGNED> By: Berhane Brennan MD, FACC 07/31/18 0908 [id number]. Osman Ryan MD, FACC /nt
== END 2018-07-03 15:30 | disposition home health service (06) | DRG 69 ==
LOC: M.ERS 21:49 → M.TBA-ER 23:29 → M.2W 23:29
PROVIDERS: Internal Medicine; Personal Emergency Response Attendant; ADMIT Family Medicine
DX: G45.9 Transient cerebral ischemic attack, unspecified (principal); D68.69 Other thrombophilia; I48.2 Chronic atrial fibrillation; I10 Essential (primary) hypertension; E03.9 Hypothyroidism, unspecified; F41.9 Anxiety disorder, unspecified; R27.0 Ataxia, unspecified; I70.1 Atherosclerosis of renal artery; E78.5 Hyperlipidemia, unspecified; Z95.0 Presence of cardiac pacemaker; Z87.01 Personal history of pneumonia (recurrent); Z88.2 Allergy status to sulfonamides; Z88.8 Allergy status to other drugs, medicaments and biological substances; Z87.891 Personal history of nicotine dependence; Z79.01 Long term (current) use of anticoagulants; Z82.49 Family history of ischemic heart disease and other diseases of the circulatory system; Z79.82 Long term (current) use of aspirin; Z79.899 Other long term (current) drug therapy; Z28.21 Immunization not carried out because of patient refusal

== ENCOUNTER 2018-08-25 09:04 | Inpatient (IN) | payer MEDICARE, BC ==
[~2018-08-25] VITALS: Ht 165.1 cm; Wt 58.1 kg
[~2018-08-25 09:04] MED LIST changes: +ASPIRIN325 PO; +COZAAR 25 MG TA25 M1 PO; +HYDRALAZINE 10M10 MG PO
[2018-08-25 09:20] VITALS: BP 181/91
--- NOTE | 2018-08-25 09:38 | NUR ---
PT REFUSED CAT SCAN, STATES SHE JUST HAD ONE 1 MONTH AGO. ED PHYSICIAN NOTIFIED.
[2018-08-25 09:54] LABS: ABSOLUTE EOSINOPHILS 0.1 thou/uL (0.0-0.7); ABSOLUTE LYMPHOCYTES 1.5 thou/uL (0.8-5.3); ABSOLUTE MONOCYTES 0.5 thou/uL (0.0-1.2); BASOPHILS 0.6 %; EOSINOPHILS 0.9 %; HEMATOCRIT 46.1 % (37.0-47.0); HEMOGLOBIN 15.4 gm/dL (12.0-15.0); LYMPHOCYTES 21.2 %; MCH 32.3 pg (26.0-34.0); MCHC 33.4 g/dL (28.0-37.0); MCV 96.7 fL (80.0-100.0); MONOCYTES 6.8 %; MPV 9.9 fl. (7.2-11.1); NUCLEATED RBCS 0 /100WBC; PLATELET COUNT* 211 thou/uL (150-400); POLYS 70.5 %; RBC 4.77 mil/uL (4.20-5.00); WBC 7.1 thou/uL (4.0-11.0)
[2018-08-25 09:58] LABS: APTT 25.4 Seconds (25.0-31.3); PROTIME 10.7 Seconds (9.20-11.50)
--- NOTE | 2018-08-25 09:58 | NUR ---
AFTER SPEAKING WITH DR MICHAEL, THE PATIENT HAS CONSENTED TO HAVING HER CT HEAD W/O CONTRAST.
[2018-08-25 10:01] LABS: ANION GAP 11 mmol/L (7-16); BUN 24 mg/dL (7-18); CALCIUM 9.1 mg/dL (8.5-10.1); CHLORIDE 100 mmol/L (98-107); CO2 24 mmol/L (21-32); GLUCOSE 104 mg/dL (70-99); POTASSIUM 3.9 mmol/L (3.5-5.1); SODIUM 135 mmol/L (136-145)
--- NOTE | 2018-08-25 10:03 | NUR ---
PT'S SON HAS REQUESTED FOR A CONSULTATION BY CASE MANAGEMENT FOR CARE OF THE PATIENT, THAT THERE HAS BEEN A DECLINE IN HER ABILITY TO CARE FOR HERSELF. DR MICHAEL AND DR NORTON NOTIFIED.
[2018-08-25 10:11] LABS: ALBUMIN 3.7 g/dL (3.4-5.0); ALKALINE PHOSPHATASE 81 U/L (46-116); NT-PRO BRAIN NAT PEPTIDE 1626 pg/mL (<300); SGOT 20 U/L (15-37); SGPT 14 U/L (30-65); TOTAL BILIRUBIN 0.5 mg/dL (<0.1-1.0); TOTAL PROTEIN 6.7 g/dL (6.4-8.2); TROPONIN-I LEVEL <0.06 ng/mL (<0.06)
--- NOTE | 2018-08-25 10:38 | NUR ---
PT'S SON HAS REQUESTED THAT HE SPEAK WITH CASE MANAGEMENT DURING THE PATIENT'S STAY. HE REPORTS THAT IF THEY SPEAK WITH THE PATIENT, SHE WILL REFUSE ASSISTANCE FROM THEM.
[2018-08-25 11:22] VITALS: BP 155/80
[2018-08-25 11:30] VITALS: BP 133/93
[2018-08-25] MEDS ORDERED: ASPIR 8181 MG PO (12:01)
--- NOTE | 2018-08-25 12:20 | NUR ---
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, TRACING A-FIB RATE CONTROLLED- PACE MAKER NOTED- PT A&O X4- [place] WITH NO HEARING AIDES NOTED- CONTINENT OF BOWEL AND BLADDER- SBA WITH TRANSFERS FOR SAFETY- DIMINISHED LUNG SOUNDS NOTED, RESP EVEN AND UN-LABORED- REPORTED DRY COUGH- DYSPNEA NOTED ON EXERTION- PT REPORTS FEELING EXTREMILY ENXIOUS LATELY OF UNKNOWN CAUSE- VS 97.6 18 133/93 92 96% ON RA- ABDOMEN SOFT/ROUND/NON-TENDER, BS X4 QUADS- LAST BM REPORTED 08/24/18- IV NOTED TO LEFT AC INTACT AND SL- SKIN C/D/I, NOTED MOLES; GLASSES NOTED INTACT AT TIME OF ADMISSION- NOTED WITH OWN TEETH- SON AT SIDE AT TIME OF ADMISSION AND REQUEST CM CONSULT R/T CONCERN FOR PT AT HOME SELF CARING FOR SELF WITH NOTED DECLINE- PT DENIES ANY C/O PAIN/DISCOMFORT AT THIS TIME- CALL LIGHT AND PERSONAL BELONGINGS WITH IN REACH-BED ALARM IN PLACE AND WORKING FOR PT SAFETY- ALL NEEDS MET AT THIS TIME-WCTM
--- NOTE | 2018-08-25 12:33 | EKG ---
[place] [address] ELECTROCARDIOGRAM REPORT Name: PEBBLES SÁNCHEZ Room: [place] [address] ADM IN .R.#: [id number] Admission: 08/25/18 Attend Phys: Michelet Roues Discharge: Date of : 31 Report #: [id number] THIS REPORT FOR: //name// [facility] ED Test Date: 2018-08-25 Test Time: 09:15:49 Pat Name: PEBBLES SÁNHCEZ Department: Room: [facility] Gender: F Search Engine Optimization Manager: Cherie MATOS : 1930 Requested By: Maurice Downs Order Number: [id number] MD: Matt House Measurements Intervals [place] Rate: 86 P: MD: QRS: 79 QRSD: 84 T: -77 QT: 397 QTc: 475 Interpretive Statements Atrial fibrillation Probable LVH with secondary repol abnrm Compared to ECG 07/01/2018 21:56:49 Ventricular premature complex(es) no longer present Myocardial infarct finding no longer present Electronically Signed On 08-25-2018 12:33:13 ELECTRONICS WARFARE TECHNICIAN by Matt House [email or web address] <ELECTRONICALLY SIGNED> By: Matt House MD, FACC 08/25/18 1233 0915 0915 Matt House MD, FAC /EPI
--- NOTE | 2018-08-25 13:17 | NUR ---
Pt is A&O. Spoke with Pt's son in the hallway. Son wants Pt to have HH at dc, Pt has a hx of HH, and would want to use [facility] at dc. Pt resides at home alone. Independent and active, continues to drive. Pt has had increased weakness over the past few days. No DME. No home o2. Pt lives in a tri level house, Pt has to go upstairs to use the restroom and shower. Pt normally stays on the main floor and sleeps on the couch. CM provided son with IDL options, son to go and tour. Plan dc home with HH, with a nurse and SW. Following [facility] p:[phone] f:[phone]
[2018-08-25 20:00] VITALS: BP 145/82
[2018-08-26] VITALS: BP 158/69
[2018-08-26 00:06] LABS: URINE BILIRUBIN NEGATIVE (Negative); URINE BLOOD NEGATIVE (Negative); URINE CLARITY CLEAR; URINE COLOR YELLOW; URINE GLUCOSE-RANDOM NEGATIVE (Negative); URINE KETONES NEGATIVE (Negative); URINE LEUKOCYTES-REFLEX 1+ (Negative); URINE NITRITE-REFLEX NEGATIVE (Negative); URINE PROTEIN NEGATIVE (Negative); URINE UROBILINOGEN 0.2 E.U./dl (0.2-1.0)
[2018-08-26 00:14] LABS: BACTERIA-REFLEX None Seen /HPF (None Seen); CASTS None Seen /LPF (None Seen); CRYSTALS None Seen /LPF (None Seen); SQUAMOUS 0-3 Few /LPF (0-3); URINE RBC None Seen /HPF (0-2); URINE WBC-REFLEX 6-15 Few /HPF (0-5)
[2018-08-26 04:00] VITALS: BP 161/82
--- NOTE | 2018-08-26 04:52 | NUR ---
ASSUMED CARE OF PT AFTER REPORT AT 1930. PT A&OX4. VSS. PHYSICAL ASSESSMENT COMPLETED AND CHARTED. PT ON RA WITH 94% O2 SAT. PT TRACING AFIB/VPACED ON TELE. PT UP ADLIB TO RESTROOM. PT REQUESTED TO HAVE HER DAILY DOSE OF ASPIRIN AND CRESTOR. ALSO, PT REQUESTED FOR XANAX. DR PORTILLO INFORMED WITH NEW ORDERS. DENIES ANY PAIN OR DISCOMFORT. HOURLY ROUNDING OBSERVED. CALL LIGHT WITHIN REACH. BED IN LOW POSITION.
[2018-08-26 08:00] VITALS: BP 184/88
--- NOTE | 2018-08-26 08:00 | NUR ---
ASSUMED PT. CARE AND RECEIVED REPORT AT 0730. PT A/OX4,VSS, MONITOR ON TRACING AFIB/FLUT/THERMO PROCESSOR. ON RA @ 94%. FULL ASSESSMENT COMPLETED, REFER TO CHARTING. PT. ASKING FOR XANAX, ORDERED Q12 AND LAST GIVEN AT 0042. DISCUSSED WITH PT. ORDERS AND LAST TAKEN AND WHEN CAN HAVE AGAIN. PT. STATED UNDERSTANDING HOWEVER, HAS CALLED OUT MULTIPLE TIMES ASKING FOR XANAX AGAIN. DISCUSSED THAT SHE TAKES MORNING AND BEDTIME A HOME. WILL GIVE WITH A.M MEDS TO GET ON HOME SCHEDULE THIS MORNING, DR. LAYNE MADE AWARE. PT. SON INTO VISIT, INQUIRING ABOUT DC. CALL LIGHT IN REACH, WILL CONTINUE WITH PLAN OF CARE.
[2018-08-26] MEDS ORDERED: MACROBID 100 M100 M2 PO (09:35)
[2018-08-26] MEDS ORDERED: COZAAR 50 MG TA50 M1 PO (09:35)
[2018-08-26] MEDS ORDERED: ESCITALOPRAM OX10 MG PO (09:35)
[2018-08-26 10:06] VITALS: BP 161/82
--- NOTE | 2018-08-26 10:13 | NUR ---
Received order from physician to arrange home health. Per previous CM note, pt has been on service with [facility] and wants to use them again. Called [facility] and spoke with intake. No other needs identified.
--- NOTE | 2018-08-26 11:33 | 2DMMODE ---
[place] [address] 2 D/M-MODE ECHOCARDIOGRAM Name: PEBBLES SÁNCHEZ Room: [facility] ADM IN [facility]#: [id number] Admission: 08/25/18 Attend Phys: Joseph Gilbert Discharge: Date of : 32 Date of Service: 08/26/18 1132 Report #: [id number] THIS REPORT FOR: //name// APPROVED REPORT Study performed: 08/25/2018 13:52:00 EXAM: Comprehensive 2D, Doppler, and color-flow Echocardiogram Patient Location: In-Patient Room #: [facility] Status: routine BSA: 1.61 HR: 87 bpm BP: 133/93 mmHg Rhythm: Atrial Fibrillation Other Information Study Quality: Good Indications Congestive Heart Failure Atrial Fibrillation Echo Enhancing Agent Indication: Rule out Shunt Agent(s) / Amount(s) Used: Agitated Saline 10 cc 2D Dimensions IVSd: 10.08 (7-11mm) LVOT Diam: 19.95 (18-24mm) LVDd: 32.35 mm PWd: 10.41 (7-11mm) Ascending Ao: 31.26 (22-36mm) LVDs: 19.65 (25-40mm) Aortic Root: 32.39 mm Volumes Left Atrial Volume (Systole) LA ESV Index: 44.80 mL/m2 Aortic Valve AoV Peak Wilfrid.: 1.36 m/s AO Peak Gr.: 7.43 mmHg LVOT Max P.47 mmHg AO Mean Gr.: 4.01 mmHg LVOT Mean P.04 mmHg LVOT Max V: 0.79 m/s AO V2 VTI: 23.95 cm LVOT Mean V: 0.46 m/s LUIS (VTI): 1.78 cm2 LVOT V1 VTI: 13.60 [place] [address] 2 D/M-MODE ECHOCARDIOGRAM Name: PEBBLES SÁNCHEZ Room: [address] IN [facility]#: [id number] Admission: 08/25/18 Attend Phys: Joseph Gilbert Discharge: Date of : 32 Date of Service: 08/26/18 1132 Report #: [id number] Mitral Valve MV Decel. Time: 190.29 ms MV PHT: 55.18 ms MVA (PHT): 3.99 cm2 TDI Medial E' Wilrfid.: 0.10 m/s Lateral E' Wilfrid.: 0.12 m/s Pulmonary Valve PV Peak Wilfrid.: 1.01 m/s PV Peak Gr.: 4.12 mmHg Tricuspid Valve RAP Estimate: 5.00 mmHg TR Peak Gr.: 29.45 mmHg RVSP: 34.00 mmHg PA Pressure: 34.00 mmHg Left Ventricle The left ventricle is normal size. There is normal LV segmental wall motion. Moderate to severe concentric left ventricular hypertrophy. Left ventricular systolic function is normal. The left ventricular ejection fraction is within the normal range. LVEF is 65-70%. This study is not technically sufficient to allow evaluation of the LV diastolic function due to atrial fibrillation. Right Ventricle The right ventricle is normal size. The right ventricular systolic function is normal. Pacemaker lead is present in the right ventricle. Atria Left atrium is severely dilated. Interatrial septum is intact without evidence of ASD or PFO.Negative bubble study. Right atrium is dilated. Aortic Valve Mild aortic valve sclerosis. No aortic regurgitation is present. Mild aortic stenosis.Mean Gradient <10mmHg Mitral Valve There is mitral annular calcification. Mild mitral regurgitation. No evidence of mitral valve stenosis. Tricuspid Valve The tricuspid valve is normal in structure. Moderate tricuspid regurgitation. [place] [address] 2 D/M-MODE ECHOCARDIOGRAM Name: PRINCESSPEBBLES O Room: [address] IN [facility]#: [id number] Admission: 08/25/18 Attend Phys: Joseph Gilbert Discharge: Date of : 32 Date of Service: 08/26/18 1132 Report #: [id number] Pulmonic Valve The pulmonary valve is normal in structure. There is no pulmonic valvular regurgitation. Great Vessels The aortic root is normal in size. IVC is normal in size and collapses >50% with inspiration. Pericardium There is no pericardial effusion. <Conclusion> Moderate to severe concentric left ventricular hypertrophy. LVEF is 65-70%. There is normal LV segmental wall motion. Left atrium is severely dilated. Right atrium is dilated. Mild aortic stenosis.Mean Gradient <10mmHg Pacemaker lead is present in the right ventricle. Interatrial septum is intact without evidence of ASD or PFO. Mild mitral regurgitation. Moderate tricuspid regurgitation. Mild pulmonary hypertension. <ELECTRONICALLY SIGNED> By: Matt House MD, FACC 08/26/18 113 31 113 Matt House MD, FACC /INF
[2018-08-26 12:00] VITALS: BP 156/77
--- NOTE | 2018-08-26 12:00 | NUR ---
DISCUSSED ANTICOAGULATION WITH DR. LAYNE PER DR. CASTRO REQUEST. DR. LAYNE ORDERED 81MG ASA AT THIS TIME.
[2018-08-26 12:45] LABS: HEMATOCRIT 42.4 % (37.0-47.0); HEMOGLOBIN 14.3 gm/dL (12.0-15.0); MCH 32.5 pg (26.0-34.0); MCHC 33.8 g/dL (28.0-37.0); MCV 96.2 fL (80.0-100.0); RBC 4.4 mil/uL (4.20-5.00); RDW-CV 13.2 % (10.5-14.5); WBC 6.7 thou/uL (4.0-11.0)
[2018-08-26 13:03] LABS: ALBUMIN 3.4 g/dL (3.4-5.0); CALCIUM 8.9 mg/dL (8.5-10.1); CREATININE 0.9 mg/dL (0.6-1.3); POTASSIUM 4.2 mmol/L (3.5-5.1); TOTAL BILIRUBIN 0.4 mg/dL (<0.1-1.0)
[2018-08-26 14:22] VITALS: BP 156/77
--- NOTE | 2018-08-26 14:45 | NUR ---
SPOKE WITH DR. CASTRO VIA PHONE. PT. FAMILY WISH TO WAIT FOR CTA OUTPT. AND TO DC TODAY. DC ORDERS WRITTEN BY DR. LAYNE ALREADY. PT. REQUEST TO HAVE SCIPTS CALLED TO [facility], DONE PER REQUEST. PT. AWARE OF PLAN AND OKAY WITH DC.
--- NOTE | 2018-08-26 15:15 | NUR ---
DC ORDERS RECEIVED. IV AND MONITOR REMOVED. PT. GIVEN DC INSTRUCTIONS SCRIPTS AND CARENOTES. INSTRUCTIONS ALSO GIVEN TO SON. PT. LEFT VIA WHEELCHAIR TO RETURN HOME IN PERSONAL VEHICLE, ALL BELONGINGS ACCOUNTED FOR.
--- NOTE | 2018-08-26 15:44 | CON ---
[address] [address] CONSULTATION Name: PEBBLES SÁNCHEZ Room: [place] [address] ADM IN .R.#: [id number] Admission: 08/25/18 Attend Phys: Michelet Rouse Discharge: Date of : 32 Report #: [id number] THIS REPORT FOR: //name// CC: Zaki Gilbert DATE OF SERVICE: 08/25/2018 HISTORY OF PRESENT ILLNESS: This is an 87-year-old female patient who was admitted with an episode of sweating. She said she woke up this morning and she was sweating profusely. Records from the Emergency Room indicate that she was having generalized weakness as well as some dizziness. She gives a history she was just feeling bad and the dizziness she is not very certain and the Emergency Room note indicated that it has resolved. She indicated she felt she was having a systemic infection because she was warm and she still believed the infection was the cause of her problem. She did not take the temperature. Her dizziness is much better. When she came to Emergency Room, the symptoms were associated with hypertension with a blood pressure of 181/91. The symptoms are improved and her blood pressure is much better. REVIEW OF SYSTEMS: Fourteen-point review of system was carried out. The history is very poor and therefore, it is very difficult to carry out. She indicated that she had a stroke about 14 years ago. When I asked her what symptoms she had during the stroke, she said she could not move. She was admitted here not too long ago and I have seen her and that time, we had tried to get the record from [facility], but we were not able to get it. Stroke according to her was 14 years ago. In any event, she has documented atrial fibrillation and she was recommended Eliquis as an anticoagulation by Cardiology. Presently, she is not on that and I do not know if she was taking it at home or not. She does have some history of depression and she takes some medication for that. She has a history of pneumonia and UTI in the past. She has a history of hypertension and hypothyroidism in the past. She indicates her memory is not very good. She does have dyslipidemia for which she takes treatment. Fourteen-point review of system otherwise was mostly noncontributory and it does not look like she is having any new eye, ENT, respiratory, GI, , musculoskeletal, constitutional, dermatological, hematological, psychiatric, throat or allergic symptom associated with present symptomatology. PAST MEDICAL HISTORY: Positive for stroke about 14 years ago and it is not clear whether that was hemorrhagic stroke or not. FAMILY HISTORY: Negative for any early age stroke. SOCIAL HISTORY: She said she does not smoke or drink any alcohol. PHYSICAL EXAMINATION: Indicates that she is alert. [place] [address] CONSULTATION Name: LAMBERT SÁNCHEZUri Anthony Room: [place] [address] ADM IN [facility]#: [id number] Admission: 08/25/18 Attend Phys: Michelet Rouse Discharge: Date of : 32 Report #: [id number] oriented. Her speech, concentration, fund of knowledge and memory is at her baseline. Cranial nerve examination 2-12 looks unremarkable. Strength, sensation, reflexes and tones are symmetrical. There is no meningeal sign. There is no carotid bruit. There is no papilledema. She is moderately-built individual who does not have any dysmorphic features of eyes, ears and face. Her vision and hearing looks adequate. She has no meningeal sign. There is no thyroid mass. Cardiac examinations indicate that she has a pacemaker. Respiratory examination does not show any respiratory difficulty or rhonchi. I think the pulses are palpable, although she had stent there. Her blood pressure is 133/93, respirations 18, pulse is 92, temperature is 97.6. LABORATORY DATA: Indicates that white count is normal. Sodium is 135. BUN is trace high at 24 and creatinine is normal. CT scan showed really no hemorrhage or new stroke. IMPRESSION: It is not certain that the episode she had was transient ischemic attack or a stroke. I think the systemic causes need to be looked at. She is hypertensive and she needs to be worked up for any systemic infection, which can cause encephalopathy. She does have a history of atrial fibrillation, prior stroke and she was put on anticoagulation and I am not sure what happened since last time. I will try to reach the family and see what happened and see if we can get any better history from them. We cannot do an MRI because pacemaker is not compatible with the MRI as I understand. She had a carotid Doppler done in June and that did show carotid stenosis and we may have to do a CT angio. She just had a CT angio of the chest and I will give her some break from the dye before we do any further testing in that regard. RECOMMENDATIONS: I discussed all of it with the patient and we will try to find from the family what happened with her anticoagulation. Present episode does not appear to be TIA or ischemia and I will suggest continue to look for systemic cause for her problem. <ELECTRONICALLY SIGNED> By: Fausto Lira MD 08/26/18 1544 [id number] Lira MD /nt
--- NOTE | 2018-08-26 15:44 | EEG ---
[address] [address] EEG STUDY REPORT Name: PEBBLES SÁNCHEZ Room: [address] IN M.R.#: [id number] Admission: 08/25/18 Attend Phys: Michelet Rouse Discharge: Date of : 32 Report #: [id number] THIS REPORT FOR: //name// CC: Zaki Gilbert DATE OF SERVICE: 08/25/2018 This patient is being evaluated for an episode of dizziness, tingling and numbness on the left side. EEG was done by placing the electrode by standard 10-20 system of electrode placement. Both referential and sequential montages were used for recording. Background activity in this patient's EEG is about 8 Hz and 30 microvolt. It is a symmetrical activity. The patient went to sleep that is associated with bilaterally symmetrical sleep spindle and vertex sharp waves. Throughout the record, no active epileptiform activity was noticed. IMPRESSION: This patient's EEG is intermixed with some theta range slowing on both sides. That is a nonspecific abnormality, which can occur with dementia, encephalopathy, effect of psychotropic medication, etc. Clinical correlation is recommended. <ELECTRONICALLY SIGNED> By: Fausto Lira MD 08/26/18 1544 [id number] Lira MD /nt
== END 2018-08-26 15:15 | disposition home health service (06) | DRG 300 ==
LOC: M.ERS 09:04 → M.TBA-ER 10:28 → M.2W 10:28
PROVIDERS: Family Medicine; Psychiatry & Neurology Neuromuscular Medicine; ADMIT Internal Medicine
DX: I71.4 Abdominal aortic aneurysm, without rupture (principal); N39.0 Urinary tract infection, site not specified; I10 Essential (primary) hypertension; E78.00 Pure hypercholesterolemia, unspecified; E03.9 Hypothyroidism, unspecified; F41.9 Anxiety disorder, unspecified; I48.91 Unspecified atrial fibrillation; I95.1 Orthostatic hypotension; I51.3 Intracardiac thrombosis, not elsewhere classified; Z86.73 Personal history of transient ischemic attack (TIA), and cerebral infarction without residual deficits; Z95.0 Presence of cardiac pacemaker; Z88.2 Allergy status to sulfonamides; Z88.8 Allergy status to other drugs, medicaments and biological substances; Z87.891 Personal history of nicotine dependence

== ENCOUNTER 2018-11-03 11:06 | Emergency (ER) | payer MEDICARE, BC ==
[~2018-11-03] VITALS: Ht 165.1 cm; Wt 54.4 kg
[~2018-11-03 11:06] MED LIST changes: +ASPIR 8181 MG PO; +COZAAR 50 MG TA50 M1 PO; +ESCITALOPRAM OX10 MG PO; +MACROBID 100 M100 M2 PO
[2018-11-03 13:49] VITALS: BP 163/94
== END 2018-11-03 13:49 | disposition home or self-care (01) ==
LOC: M.ERS 11:06
DX: R51 Headache (principal); I10 Essential (primary) hypertension; E03.9 Hypothyroidism, unspecified; E78.00 Pure hypercholesterolemia, unspecified; F32.9 Major depressive disorder, single episode, unspecified; F41.9 Anxiety disorder, unspecified; Z95.0 Presence of cardiac pacemaker; Z87.891 Personal history of nicotine dependence; Z88.2 Allergy status to sulfonamides; Z88.8 Allergy status to other drugs, medicaments and biological substances